=== PATIENT | male | born 1995 | race Caucasian/White ===

== ENCOUNTER 2017-08-09 10:43 | Emergency (ER) | payer OTHER ==
[~2017-08-09] VITALS: Ht 180.3 cm; Wt 90.7 kg
[2017-08-09] MEDS ORDERED: KEFLEX500 M1 PO (12:21)
[2017-08-09 12:32] VITALS: BP 145/59
== END 2017-08-09 12:33 | disposition home or self-care (01) ==
LOC: M.ERS 10:43
DX: S61.210A Laceration without foreign body of right index finger without damage to nail, initial encounter (principal); W27.8XXA Contact with other nonpowered hand tool, initial encounter; Y93.89 Activity, other specified; Y92.89 Other specified places as the place of occurrence of the external cause; Y99.0 Civilian activity done for income or pay